=== PATIENT | male | born 1945 | race Caucasian/White ===

== ENCOUNTER 2018-12-28 08:58 | Emergency (ER) | payer OTHER, SELFPAY ==
[2018-12-28 09:06] VITALS: BP 147/82; PULSE 90; RESP 13; TEMP 36; O2SAT 98
--- NOTE | 2018-12-28 09:09 | ED_ITS ---
HPI - URI/Sore Throat General Chief Complaint: Upper Respiratory Symptoms Stated Complaint: Cough/ has Flu Time Seen by Provider: 12/28/18 09:00 Source: patient Mode of arrival: Ambulatory Limitations: no limitations History of Present Illness HPI Narrative: 73-year-old male former smoker with benign medical history presents with a chief complaint of a dry and hacking cough since yesterday at noon.. He denies no chest pain or significant shortness of breath. He has a very mild sore throat but no headache or joint pain. His of was diagnosed with influenza is currently taking Tamiflu. He denies nausea, vomiting or diarrhea. He is otherwise healthy and free of complaint MD Complaint: cough, rhinorrhea and nasal congestion Onset (ago): hour(s) Duration: constant Severity: mild Relieving factors: nothing Exacerbating factors: nothing Description of mucous: other Able to tolerate fluids by mouth: Yes Context: sick contacts Treatments prior to arrival: none Review of Systems Constitutional Constitutional: Denies chills, Denies fatigue, Denies fever(s), Denies frequent falls, Denies lethargy and Denies weakness Eyes Eyes: Denies change in vision, Denies eye discharge, Denies irritation and Denies loss of vision ENT Ears, Nose, Mouth, and Throat: Denies change in voice, Denies dizziness, Denies neck pain, Reports sore throat and Denies throat swelling Cardiovascular Cardiovascular: Denies chest pain, Denies irregular heart rhythm, Denies lightheadedness, Denies palpitations, Denies dyspnea, Denies dyspnea on exertion and Denies orthopnea Respiratory Respiratory: Reports cough, Denies dyspnea, Denies dyspnea on exertion and Denies wheezing Gastrointestinal Gastrointestinal: Denies abdominal pain, Denies change in bowel habits, Denies diarrhea, Denies nausea and Denies vomiting Genitourinary Genitourinary: Denies hematuria, Denies flank pain, Denies urinary incontinence and Denies urinary urgency Musculoskeletal Musculoskeletal: Denies back pain, Denies muscle weakness, Denies neck pain, Denies numbness and Denies tingling Integumentary/Breasts Skin/Breast: Denies pruritus, Denies erythema, Denies rash and Denies wounds Neurologic Neurologic: Denies behavioral changes, Denies confusion, Denies dizziness, Denies frequent falls, Denies loss of vision, Denies numbness, Denies tingling and Denies weakness Psychiatric Psychiatric: Denies anxiety, Denies behavioral changes, Denies confusion, Denies depression, Denies homicidal ideation and Denies suicidal ideation Endocrine Endocrine: Denies fatigue, Denies flushing and Denies palpitations Hematologic/Lymphatic Hematologic/Lymphatic: Denies easy bruising Allergic/Immunologic Allergic/Immunologic: Denies urticaria, Denies throat swelling and Denies wheezing Patient History Social History Smoking Status: Never smoker tobacco type: cigarettes Exam Narrative Exam Narrative: GEN: AOx3 and in mild distress EYES: Pupils are equal, round, and reactive to light and accommodation. Extraoccular muscles are intact bilaterally. There is no subconjunctival hemorrhage or exudate. ENT: clear drainage, clear post nasal drip, no erythema, swelling or exudate CHEST: Lungs are clear to auscultation bilaterally and free of wheezes, rales, or rhonchi. Heart rate is regular rhythm, there are no murmurs, clicks, rubs, or gallops. There is no chest wall tenderness. ABD: Abdomen is soft and nontender. There is no guarding or rebound. Bowel so unds are normal in all 4 quadrants. There is no mass or organomegaly. EXT: Full painless ROM of all extremities with no loss of sensation or strength. SKIN: Warm, pink, and dry. No erythema or rash Initial Vital Signs Initial Vital Signs: Vital Signs Temperature 96.8 F L 12/28/18 09:06 Pulse Rate 90 12/28/18 09:06 Respiratory Rate 13 12/28/18 09:06 Blood Pressure 147/82 H 12/28/18 09:06 Pulse Oximetry 98 12/28/18 09:06 Course Orders Ordered: ED Orders 12/28/18 09:14 Influenza A and B by PCR Rapid Stat Vital Signs Vital signs: Vital Signs - 8 hr 12/28/18 09:06 Temperature 96.8 F L Pulse Rate 90 Respiratory Rate 13 Blood Pressure 147/82 H Pulse Oximetry 98 MDM - URI/Sore Throat Lab Data Labs: Lab Results 12/28/18 Range/Units 09:14 Influenza A & B (PCR) Negative (Negative) Discharge Plan Departure Patient Disposition: Home Clinical Impression: Upper respiratory infection Qualifiers: URI type: unspecified viral URI Qualified Code(s): J06.9 - Acute upper respiratory infection, unspecified Instructions: DI for Viral Upper Respiratory Infection -- Adult Activity Restrictions/Additional Instructions: *You have been diagnosed with [acute viral upper respiratory infection] *What to do: *Take medications as directed: [id number] cough and cold medications *Follow up with your primary care provider in 2-3 days, call for an appoint ment. Let them know you were seen in the Emergency Department and that we ask that you be seen in follow up *Return to ER if you should have any new, worsening or concerning symptoms
[2018-12-28 09:35] LABS: Influenza A and B by PCR Rapid Negative (Negative)
[2018-12-28 09:50] VITALS: PULSE 80; RESP 16; O2SAT 99
== END 2018-12-28 10:26 | disposition home or self-care (01) ==
PROVIDERS: Emergency Provider Emergency Medicine
DX: J06.9 Acute upper respiratory infection, unspecified (principal)
CPT/HCPCS: 87502; 99282; 99283

== ENCOUNTER → 2019-12-19 11:21 | Outpatient (CLI) | payer OTHER, SELFPAY ==
[2019-12-22 07:47] LABS: COVID19 Sendout Not Detected (Not Detect)
== END ==
PROVIDERS: Visit Provider Physician Assistant
DX: Z11.59 Encounter for screening for other viral diseases (principal)
CPT/HCPCS: 87635

== ENCOUNTER 2023-12-17 14:15 | Emergency (ER) | payer OTHER, SELFPAY ==
[2023-12-17 14:35] VITALS: BP 129/82; PULSE 99; RESP 16; TEMP 36.7; O2SAT 99; BMI 29.7
== END 2023-12-17 17:40 | disposition left against medical advice (07) ==
PROVIDERS: Emergency Provider Student in an Organized Health Care Education/Training Program
CPT/HCPCS: 99281